=== PATIENT | male | born 2000 | race Caucasian/White ===

== ENCOUNTER 2018-02-03 19:39 | Emergency (ER) | payer MEDICAID ==
[2018-02-03 20:26] VITALS: RESP 18
--- NOTE | 2018-02-03 20:48 | EDPHY ---
H & P Stated Complaint: RIGHT HAND SKIN INFECTION- START YEST Time Seen by Provider: 02/03/18 20:48 HPI/ROS: HPI: This is a 17-year-old male who presents with Chief Complaint: RIGHT HAND SKIN INFECTION- START YEST Location: Right hand Quality: Infection Duration: 1 day Signs and Symptoms: No fever, No bleeding, no radiation, no numbness, no weakness, no tingling, no incontinence, no decreased range of motion, no swelling, no pain Timing: Acute Severity: Mild Context: Patient is right-hand dominant presents with complaints of early infection after falling and scraping his hands yesterday. Denies any history MRSA. He wash the area with soap and water. Denies any radiation/paresthesias/ weakness. Nonsmoker. Denies LOC/head injury/neck pain/dizziness/nausea/vomiting /amnesia. No history of diabetes mellitus. Modifying Factors: Wash with soap and water Comment: ROS: see HPI Constitutional: No fever, no chills, no weight loss Eyes: No blurred vision Respiratory: No shortness of breath, no cough Cardiovascular: No chest pain Gastrointestinal: No nausea, no vomiting no diarrhea Genitourinary: No dysuria Extremities: No myalgias Neurologic: No weakness, no numbness Skin: No rashes Hematologic: No bruising, no bleeding MEDICAL/SURGICAL/SOCIAL HISTORY: Medical history: Generally healthy. Does not take any regular medications. Surgical history: Denies Social history: Student. CONSTITUTIONAL: Extremely well-appearing teenage white male, awake and alert, no obvious distress HEENT: Atraumatic and normocephalic. NECK: supple, no midline tenderness, flexion 45 degrees, extension 45 degrees, right and left lateral flexion 45 degrees. No meningismus. Cardiovascular: Normal S1/S2, regular rate, regular rhythm, without murmur rub or gallop. PULMONARY/CHEST: Symmetrical and nontender. no crepitus. Clear to auscultation bilaterally. Good air movement. No accessory muscle usage. ABDOMEN: Soft, nondistended, nontender, no ecchymosis. PELVIC: no pain with rocking; bilateral hips flexion 125 degrees, extension 30 degrees, with no pain internal rotation and no pain external rotation. BACK: No midline tenderness, no paraspinous spasm, deep tendon reflexes 2/2, no pain with straight leg raise EXTREMITIES: 2/2 pulses, strength 5/5, superficial abrasion on the right palm measuring 1.5 cm; mild surrounding erythema and tenderness to palpation. No fluctuance/discharge. DIP/PIP/MCP flexion/extension intact with good light touch sensation. no deformities, no clubbing, no cyanosis or edema. NEUROLOGICAL: no focal neuro deficits. GCS 15. Light touch sensation intact. SKIN: Warm and dry, no erythema. no rash. Good capillary refill. Source: Patient Exam Limitations: No limitations - Personal History Current Tetanus/Diphtheria Vaccine: Yes - Medical/Surgical History Hx Asthma: No Hx Chronic Respiratory Disease: No Hx Diabetes: No Hx Cardiac Disease: No Hx Renal Disease: No Hx Cirrhosis: No Hx Alcoholism: No Hx HIV/AIDS: No Hx Splenectomy or Spleen Trauma: No Other PMH: DENIES - Social History Smoking Status: Never smoked Constitutional: Initial Vital Signs Temperature (C) 36.4 C 02/03/18 20:25 Heart Rate 79 02/03/18 20:25 Respiratory Rate 18 02/03/18 20:25 Blood Pressure 141/79 H 02/03/18 20:25 O2 Sat (%) 96 02/03/18 20:25 O2 Delivery Mode Room Air Allergies/Adverse Reactions: No Known Allergies Allergy (Unverified 02/03/18 20:24) Home Medications: Medication Instructions Recorded Cephalexin [Keflex (*)] 500 mg PO TID #21 cap 02/03/18 Medical Decision Making ED Course/Re-evaluation: Superficial abrasion with mild surrounding induration and erythema. Cleaned with mild soap and water; bacitracin and clean sterile dressing applied. Placed on Keflex antibiotics prophylaxis No signs of neurovascular compromise/tenting of skin/compartment syndrome/ extremities and joints examined above and below area of concern and are neurovascularly intact. This patient was seen under the supervision of my secondary supervising physician. I evaluated care for this patient independently. Differential Diagnosis: Differential diagnosis includes but is not limited to wound dehiscence, tenosynovitis, foreign body, cellulitis, abscess. Departure - Departure Disposition: Home, Routine, Self-Care Clinical Impression: Injury of hand, right, superficial, infected Qualifiers: Encounter type: initial encounter Qualified Code(s): S60.921A - Unspecified superficial injury of right hand, initial encounter; L08.9 - Local infection of the skin and subcutaneous tissue, unspecified; L08.9 - Local infection of the skin and subcutaneous tissue, unspecified Condition: Good Instructions: Cellulitis (ED) Additional Instructions: Keep the dressing dry and in place for 48 hours. After 48 hours, you may remove the dressing; wash the site daily with mild soap and water; then pat dry; apply bacitracin and clean sterile dressing until fully healed.. Take Tylenol 650 mg every 4 hours and/or Ibuprofen 600 mg every 8 hours with food as needed for pain. Take Keflex 3 times a day x 7 days. Referrals: [facility],. [Clinic] - As per Instructions Prescriptions: Cephalexin [Keflex (*)] 500 mg PO TID #21 cap
[2018-02-03] MEDS ORDERED: CEPHALEXIN 500 MG CAP PO ONE (21:16)
[2018-02-03] MEDS ORDERED: CEPHALEXIN 500MG PREPACK#4 BTL TAKEHOME ONE (21:32)
[2018-02-03 21:42] VITALS: BP 135/78; PULSE 88; TEMP 98.6; O2SAT 95
== END 2018-02-03 21:42 | disposition home or self-care (01) ==
DX: S60.921A Unspecified superficial injury of right hand, initial encounter (principal); L08.9 Local infection of the skin and subcutaneous tissue, unspecified; W18.39XA Other fall on same level, initial encounter